=== PATIENT | male | born 1970 | race African-American/Black ===

== ENCOUNTER 2016-11-23 09:27 | Emergency (ER) | payer BC ==
[2016-11-23] MEDS ORDERED: Ketorolac 60 MG/2 ML SDV IM ONE (10:01)
--- NOTE | 2016-11-23 10:06 | EDM.PDOC ---
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 He then experienced a sharp stabbing to his lower back about L4-5 Pain has not resolved Review of Systems: As per history of present illness and below otherwise all systems reviewed and negative. Past medical history: As per history of present illness and as reviewed below otherwise noncontributory. Surgical history: As per history of present illness and as reviewed below otherwise noncontributory. Social history: No reported history of drug or alcohol abuse. Family history: As per history of present illness and as reviewed below otherwise noncontributory. Physical exam: Alert and oriented male answering questions appropriately Skin is warm and dry HEENT: Atraumatic, normocehpalic, pupils reactive, negative for conjunctival pallor or scleral icterus, mucous membranes moist, throat clear, neck supple, nontender, trachea midline. Lungs: Clear to auscultation, breath sounds equal bilaterally, chest non tender. Heart: S1S2, regular, negative for clicks, rubs, or JVD. Abdomen: Soft, nondistended, nontender. Negative for masses or hepatossplenmegaly. mild tenderness and slightly cord muscle noted to L4-L5 area. Negative for costovertebral tenderness. Pelvis: Stable nontender. Genitourinary: Deferred. Rectal: Deferred Extremities: Atraumatic, negative for cords or calf pain. Neurovascular unremarkable. Neuro: Awake, alert, oriented. Cranial nerves II through XII unremarkable. Cerebellum unremarkable. Motor and sensory unremarkable throughout. Exam nonfocal. Diagnostics: [] Therapeutics: [Toradol 60 mg IM] Impression: []Low back pain Plan: Off[]WORK today and tomorrow Diclofenac twice a day Follow-up with your primary care provider next week Definitive disposition and diagnosis as appropriate pending reevaluation and review of above. Patient Onset: Today, Sudden Duration: Hour(s):, Getting Worse Location: Reports: Back Quality: Reports: Ache, Stabbing Severity: Moderate Improves with: Reports: None Worsens with: Reports: None Context: Reports: Lifting Associated Symptoms: Reports: No Other Symptoms lower back Pain Score (Numeric/FACES): 10 - Related Data Allergies Allergy/AdvReac Type Severity Reaction Status Date / Time No Known Allergies Allergy Verified 11/23/16 09:36 Home Meds: Home Meds Diclofenac Sodium [IJD: Diclofenac Sodium] 75 mg PO .TWICE DAILY W MEALS #20 tab.ec 11/23/16 [Rx] Past Medical History - Past Health History Medical/Surgical History: Denies Medical/Surgical History - Past Surgical History Dermatological Surgical History: Reports: Skin Biopsy Social & Family History - Family History Family Medical History: Noncontributory - Tobacco Use Smoking Status *Q: Never Smoker Second Hand Smoke Exposure: No - Recreational Drug Use Recreational Drug Use: No ED ROS GENERAL - Review of Systems Review Of Systems: ROS reveals no pertinent complaints other than HPI. ED EXAM,LOWER BACK PAIN/INJURY - Physical Exam Exam: See Below (See dictation) Course - Vital Signs Last Recorded V/S: Last Vital Signs Temp 36.5 C 11/23/16 09:37 Pulse 75 11/23/16 10:17 Resp 18 11/23/16 10:17 BP 137/93 H 11/23/16 10:17 Pulse Ox 99 11/23/16 10:17 - Orders/Labs/Meds Meds: Medications Discontinued Medications Generic Name Dose Route Start Last Admin Trade Name Michael PRN Reason Stop Dose Admin Ketorolac Tromethamine 60 mg 11/23/16 10:01 11/23/16 10:13 Toradol IM 11/23/16 10:02 60 mg ONETIME ONE Administration Departure - Departure Time of Disposition: 10:06 Disposition: Home, Self-Care 01 Condition: Good Clinical Impression: Low back pain Qualifiers: Chronicity: acute Back pain laterality: unspecified Sciatica presence: without sciatica Qualified Code(s): M54.5 - Low back pain - Discharge Information Prescriptions: Diclofenac Sodium [IJD: Diclofenac Sodium] 75 mg PO .TWICE DAILY W MEALS #20 tab.ec Instructions: Muscle Strain, [id number], Back Injury Prevention, [id number] , Back Pain, Adult, [id number] Referrals: PCP,None [Primary Care Provider] - Forms: ED Department Discharge Additional Instructions: The following information is given to patients seen in the emergency department who are being discharged to home. This information is to outline your options for follow-up care. We provide all patients seen in our emergency department with a follow-up referral. The need for follow-up, as well as the timing and circumstances, are variable depending upon the specifics of your emergency department visit. If you don't have a primary care physician on staff, we will provide you with a referral. We always advise you to contact your personal physician following an emergency department visit to inform them of the circumstance of the visit and for follow-up with them and/or the need for any referrals to a consulting specialist. The emergency department will also refer you to a specialist when appropriate. This referral assures that you have the opportunity for followup care with a specialist. All of these measure are taken in an effort to provide you with optimal care, which includes your followup. Under all circumstances we always encourage you to contact your private physician who remains a resource for coordinating your care. When calling for followup care, please make the office aware that this follow-up is from your recent emergency room visit. If for any reason you are refused follow-up, please contact the [facility] emergency department at and asked to speak to the emergency department charge nurse. Prescription for diclofenac 75 mg twice a day electronically sent Ice on 20 minutes off 20 minutes for the first 24 hours then may alternate heat and ice depending on which is feeling better If your symptoms are not improving he will need to follow-up with your primary care provider possibly need a referral to physical therapy
[2016-11-23 10:17] VITALS: BP 137/93
== END 2016-11-23 10:30 | disposition home or self-care (01) ==
LOC: MW.ED 09:27
DX: M54.5 Low back pain (principal)
CPT/HCPCS: 96372; 99282; J1885; 99283

== ENCOUNTER 2017-05-19 09:00 | Emergency (ER) | payer BC ==
--- NOTE | 2017-05-19 09:14 | EDM.PDOC ---
ED HPI GENERAL MEDICAL PROBLEM - General Chief Complaint: Respiratory Problem Stated Complaint: PT SAY HE FEELS PAIN EVERYWHERE Time Seen by Provider: 05/19/17 09:14 Source of Information: Reports: Patient - History of Present Illness INITIAL COMMENTS - FREE TEXT/NARRATIVE: HISTORY AND PHYSICAL: History of present illness: []Patient has had cough and congestion for 7 days and general myalgias, no current fever nausea vomiting chills sweats no chest pain shortness breath headache dizziness palpitation about a urine symptoms Review of systems: As per history of present illness and below otherwise all systems reviewed and negative. Past medical history: As per history of present illness and as reviewed below otherwise noncontributory. Surgical history: As per history of present illness and as reviewed below otherwise noncontributory. Social history: No reported history of drug or alcohol abuse. Family history: As per history of present illness and as reviewed below otherwise noncontributory. Physical exam: HEENT: Atraumatic, normocephalic, pupils reactive, negative for conjunctival pallor or scleral icterus, mucous membranes moist, throat clear, neck supple, nontender, trachea midline. Lungs: Clear to auscultation, breath sounds equal bilaterally, chest nontender. Heart: S1S2, regular, negative for clicks, rubs, or JVD. Abdomen: Soft, nondistended, nontender. Negative for masses or hepatosplenomegaly. Negative for costovertebral tenderness. Pelvis: Stable nontender. Genitourinary: Deferred. Rectal: Deferred. Extremities: Atraumatic, negative for cords or calf pain. Neurovascular unremarkable. Neuro: Awake, alert, oriented. Cranial nerves II through XII unremarkable. Cerebellum unremarkable. Motor and sensory unremarkable throughout. Exam nonfocal. Diagnostics: [Influenza ] Therapeutics: []Tamiflu patient described this is an off label use he requests this Phenergan with codeine HFA 48 hours off work - Impression: [Influenza] Definitive disposition and diagnosis as appropriate pending reevaluation and review of above. bodyaches Pain Score (Numeric/FACES): 7 - Related Data Allergies Allergy/AdvReac Type Severity Reaction Status Date / Time No Known Allergies Allergy Verified 05/19/17 09:09 Home Meds: Home Meds . [No Known Home Meds] 05/19/17 [History] Past Medical History - Past Health History Medical/Surgical History: Denies Medical/Surgical History - Past Surgical History Dermatological Surgical History: Reports: Skin Biopsy Social & Family History - Family History Family Medical History: Noncontributory - Tobacco Use Smoking Status *Q: Never Smoker Second Hand Smoke Exposure: No - Caffeine Use Caffeine Use: Reports: Coffee - Recreational Drug Use Recreational Drug Use: No ED ROS GENERAL - Review of Systems Review Of Systems: ROS reveals no pertinent complaints other than HPI. ED EXAM, GENERAL - Physical Exam Exam: See Below Course - Vital Signs Last Recorded V/S: Last Vital Signs Temp 99.2 F 05/19/17 09:10 Pulse 129 H 05/19/17 09:10 Resp 18 05/19/17 09:10 BP 176/116 H 05/19/17 09:10 Pulse Ox 100 05/19/17 09:10 Departure - Departure Time of Disposition: 09:49 Disposition: Home, Self-Care 01 Condition: Good Clinical Impression: Influenza A - Discharge Information Referrals: PCP,None [Primary Care Provider] - Forms: ED Department Discharge Additional Instructions: The following information is given to patients seen in the emergency department who are being discharged to home. This information is to outline your options for follow-up care. We provide all patients seen in our emergency department with a follow-up referral. The need for follow-up, as well as the timing and circumstances, are variable depending upon the specifics of your emergency department visit. If you don't have a primary care physician on staff, we will provide you with a referral. We always advise you to contact your personal physician following an emergency department visit to inform them of the circumstance of the visit and for follow-up with them and/or the need for any referrals to a consulting specialist. The emergency department will also refer you to a specialist when appropriate. This referral assures that you have the opportunity for follow-up care with a specialist. All of these measure are taken in an effort to provide you with optimal care, which includes your follow-up. Under all circumstances we always encourage you to contact your private physician who remains a resource for coordinating your care. When calling for follow-up care, please make the office aware that this follow-up is from your recent emergency room visit. If for any reason you are refused follow-up, please contact the [facility] emergency department at and asked to speak to the emergency department charge nurse.
[2017-05-19 10:03] VITALS: BP 143/91
== END 2017-05-19 10:03 | disposition home or self-care (01) ==
LOC: MW.ED 09:00
DX: J10.1 Influenza due to other identified influenza virus with other respiratory manifestations (principal)
CPT/HCPCS: 87804; 99283

== ENCOUNTER 2017-08-21 08:30 | Emergency (ER) | payer BC ==
[2017-08-21] MEDS ORDERED: Sodium Chloride 0.9% 2.5 ML Syringe FLUSH PRN (08:41)
[2017-08-21] MEDS ORDERED: Ondansetron 4 MG/2 ML SDV IVPUSH ONE (08:41)
[2017-08-21] MEDS ORDERED: Sodium Chloride 0.9% 10 ML Syringe FLUSH PRN (08:41)
[2017-08-21] MEDS ORDERED: Morphine 4 MG/ML Syringe IVPUSH ONE (08:41)
--- NOTE | 2017-08-21 08:44 | EDM.PDOC ---
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 He took Advil with no improvement he denies shortness of breath nausea vomiting palpitations he denies known history of hypertension. Review of systems: As per history of present illness and below otherwise all systems reviewed and negative. Past medical history: As per history of present illness and as reviewed below otherwise noncontributory. Surgical history: As per history of present illness and as reviewed below otherwise noncontributory. Social history: No reported history of drug or alcohol abuse. Family history: As per history of present illness and as reviewed below otherwise noncontributory. Physical exam: HEENT: Atraumatic, normocephalic, pupils reactive, negative for conjunctival pallor or scleral icterus, mucous membranes moist, throat clear, neck supple, nontender, trachea midline. Lungs: Clear to auscultation, breath sounds equal bilaterally, chest nontender. Heart: S1S2, regular, negative for clicks, rubs, or JVD. Abdomen: Soft, nondistended, nontender. Negative for masses or hepatosplenomegaly. Negative for costovertebral tenderness. Pelvis: Stable nontender. Genitourinary: Deferred. Rectal: Deferred. Extremities: Atraumatic, negative for cords or calf pain. Neurovascular unremarkable. Neuro: Awake, alert, oriented. Cranial nerves II through XII unremarkable. Cerebellum unremarkable. Motor and sensory unremarkable throughout. Exam nonfocal. Diagnostics: CBC CMP PT/INR troponin CT chest Therapeutics: Saline at 125 mL an hour morphine sulfate 4 mg IV Zofran 4 mg IV Impression: #1 mid scapular back pain #2 hypertension Definitive disposition and diagnosis as appropriate pending reevaluation and review of above. pain between shoulders Pain Score (Numeric/FACES): 8 - Related Data Allergies Allergy/AdvReac Type Severity Reaction Status Date / Time No Known Allergies Allergy Verified 08/21/17 08:41 Home Meds: Home Meds . [No Known Home Meds] 05/19/17 [History] Past Medical History - Past Health History Medical/Surgical History: Denies Medical/Surgical History - Past Surgical History Dermatological Surgical History: Reports: Skin Biopsy Social & Family History - Family History Family Medical History: Noncontributory - Tobacco Use Smoking Status *Q: Never Smoker Second Hand Smoke Exposure: No - Caffeine Use Caffeine Use: Reports: Coffee - Recreational Drug Use Recreational Drug Use: No ED ROS GENERAL - Review of Systems Review Of Systems: ROS reveals no pertinent complaints other than HPI. ED EXAM, GENERAL - Physical Exam Exam: See Below (dictation) Course - Vital Signs Text/Narrative:: CT findings were reviewed with radiology and cardiothoracic surgery at [facility] was in agreement that there is no dissection and that surveillance and follow-up as outpatient is adequate. Patient will be prescribed hydrochlorothiazide he'll be given follow-up with his private medical doctor and also local clinic he will also be given cardiothoracic surgery referral for follow-up in coordination with primary care. Last Recorded V/S: Last Vital Signs Temp 35.3 C 08/21/17 08:37 Pulse 70 08/21/17 12:06 Resp 18 08/21/17 12:06 BP 166/108 H 08/21/17 12:06 Pulse Ox 100 08/21/17 12:06 - Orders/Labs/Meds Orders: Active Orders 24 hr Category Date Time Status Cardiac Monitoring [RC] . DIRECTED Care 08/21/17 08:40 Active EKG Documentation Completion [RC] STAT Care 08/21/17 08:40 Active Pulse Oximetry [RC] ASDIRECTED Care 08/21/17 08:40 Active Chest w Cont [CT] Stat Exams 08/21/17 08:41 Taken Sodium Chloride 0.9% [Normal Saline] 1,000 ml Med 08/21/17 08:45 Active IV STAT Sodium Chloride 0.9% [Saline Flush] Med 08/21/17 08:41 Active 10 ml FLUSH ASDIRECTED PRN Sodium Chloride 0.9% [Saline Flush] Med 08/21/17 08:41 Active 2.5 ml FLUSH ASDIRECTED PRN Saline Lock Insert [OM.PC] Stat Oth 08/21/17 08:40 Ordered Medication Orders Sodium Chloride (Normal Saline) 1,000 mls @ 125 mls/hr IV STAT CHINO Last Admin: 04/21/18 08:50 Dose: 125 mls/hr Sodium Chloride (Saline Flush) 10 ml FLUSH ASDIRECTED PRN PRN Reason: Keep Vein Open Sodium Chloride (Saline Flush) 2.5 ml FLUSH ASDIRECTED PRN PRN Reason: Keep Vein Open Labs: Laboratory Tests 08/21/17 08/21/17 08/21/17 Range/Units 08:45 08:45 08:45 WBC 6.85 (4.0-11.0) K/uL RBC 4.68 (4.50-5.90) M/uL Hgb 14.7 (13.0-17.0) g/dL Hct 42.3 (38.0-50.0) % MCV 90.4 (80.0-98.0) fL MCH 31.4 (27.0-32.0) pg MCHC 34.8 (31.0-37.0) g/dL RDW Std Deviation 44.1 (28.0-62.0) fl RDW Coeff of Margy 13 (11.0-15.0) % Plt Count 186 (150-400) K/uL MPV 10.10 (7.40-12.00) fL Neut % (Auto) 40.8 L (48.0-80.0) % Lymph % (Auto) 35.6 (16.0-40.0) % Summers % (Auto) 12.7 (0.0-15.0) % Eos % (Auto) 10.8 H (0.0-7.0) % Baso % (Auto) 0.1 (0.0-1.5) % Neut # (Auto) 2.8 (1.4-5.7) K/uL Lymph # (Auto) 2.4 (0.6-2.4) K/uL Summers # (Auto) 0.9 H (0.0-0.8) K/uL Eos # (Auto) 0.7 (0.0-0.7) K/uL Baso # (Auto) 0.0 (0.0-0.1) K/uL Nucleated RBC % 0.0 /100WBC Nucleated RBCs # 0 K/uL INR 1.04 Sodium 138 (136-148) mmol/L Potassium 3.5 (3.5-5.1) mmol/L Chloride 104 (98-107) mmol/L Carbon Dioxide 28.4 (21.0-32.0) mmol/L BUN 20 H (7.0-18.0) mg/dL Creatinine 1.1 (0.8-1.3) mg/dL Est Cr Clr Drug Dosing 87.47 mL/min Estimated GFR (MDRD) > 60.0 ml/min Glucose 103 (74-106) mg/dL Calcium 9.1 (8.5-10.1) mg/dL Total Bilirubin 0.5 (0.2-1.0) mg/dL AST 18 (15-37) IU/L ALT 26 (14-63) IU/L Alkaline Phosphatase 56 (46-116) U/L Troponin I < 0.050 (0.000-0.056) ng/mL Total Protein 8.2 (6.4-8.2) g/dL Albumin 4.1 (3.4-5.0) g/dL Globulin 4.1 H (2.0-3.5) g/dL Albumin/Globulin Ratio 1.0 L (1.3-2.8) Meds: Medications Generic Name Dose Route Start Last Admin Trade Name Freq PRN Reason Stop Dose Admin Sodium Chloride 1,000 mls @ 125 mls/hr 08/21/17 08:45 08/21/17 08:50 Normal Saline IV 125 mls/hr STAT CHINO Administration Sodium Chloride 10 ml 08/21/17 08:41 Saline Flush FLUSH ASDIRECTED PRN Keep Vein Open Sodium Chloride 2.5 ml 08/21/17 08:41 Saline Flush FLUSH ASDIRECTED PRN Keep Vein Open Discontinued Medications Generic Name Dose Route Start Last Admin Trade Name Freq PRN Reason Stop Dose Admin Iopamidol 100 ml 08/21/17 09:32 08/21/17 09:32 Isovue-370 (76%) IVPUSH 08/21/17 09:33 75 ml ONETIME STA Administration Morphine Sulfate 4 mg 08/21/17 08:41 08/21/17 08:50 Morphine IVPUSH 08/21/17 08:42 4 mg ONETIME ONE Administration Ondansetron HCl 4 mg 08/21/17 08:41 08/21/17 08:50 Zofran IVPUSH 08/21/17 08:42 4 mg ONETIME ONE Administration Departure - Departure Time of Disposition: 12:08 Disposition: Home, Self-Care 01 Condition: Good Clinical Impression: Thoracic aortic aneurysm, Hypertension - Discharge Information Referrals: PCP,None [Primary Care Provider] - Forms: ED Department Discharge Additional Instructions: The following information is given to patients seen in the emergency department who are being discharged to home. This information is to outline your options for follow-up care. We provide all patients seen in our emergency department with a follow-up referral. The need for follow-up, as well as the timing and circumstances, are variable depending upon the specifics of your emergency department visit. If you don't have a primary care physician on staff, we will provide you with a referral. We always advise you to contact your personal physician following an emergency department visit to inform them of the circumstance of the visit and for follow-up with them and/or the need for any referrals to a consulting specialist. The emergency department will also refer you to a specialist when appropriate. This referral assures that you have the opportunity for followup care with a specialist. All of these measure are taken in an effort to provide you with optimal care, which includes your followup. Under all circumstances we always encourage you to contact your private physician who remains a resource for coordinating your care. When calling for followup care, please make the office aware that this follow-up is from your recent emergency room visit. If for any reason you are refused follow-up, please contact the [facility] emergency department at and asked to speak to the emergency department charge nurse. [facility] [address] [place] [id number] Hydrochlorothiazide as prescribed follow-up primary medical doctor in our clinic above CV surgery referral as discussed and return as needed as discussed - My Orders Last 24 Hours: My Active Orders 08/21/17 08:40 Cardiac Monitoring [RC] . DIRECTED EKG Documentation Completion [RC] STAT Pulse Oximetry [RC] ASDIRECTED Saline Lock Insert [OM.PC] Stat 08/21/17 08:41 Chest w Cont [CT] Stat Sodium Chloride 0.9% [Saline Flush] 10 ml FLUSH ASDIRECTED PRN Sodium Chloride 0.9% [Saline Flush] 2.5 ml FLUSH ASDIRECTED PRN 08/21/17 08:45 Sodium Chloride 0.9% [Normal Saline] 1,000 ml IV STAT - Assessment/Plan Last 24 Hours: My Active Orders 08/21/17 08:40 Cardiac Monitoring [RC] . DIRECTED EKG Documentation Completion [RC] STAT Pulse Oximetry [RC] ASDIRECTED Saline Lock Insert [OM.PC] Stat 08/21/17 08:41 Chest w Cont [CT] Stat Sodium Chloride 0.9% [Saline Flush] 10 ml FLUSH ASDIRECTED PRN Sodium Chloride 0.9% [Saline Flush] 2.5 ml FLUSH ASDIRECTED PRN 08/21/17 08:45 Sodium Chloride 0.9% [Normal Saline] 1,000 ml IV STAT
[2017-08-21] MEDS ORDERED: Sodium Chloride 0.9% 1,000 ML IV SCH (08:45)
[2017-08-21 09:17] LABS: CHLORIDE,CL 104 mmol/L (98-107); SODIUM,NA 138 mmol/L (136-148)
[2017-08-21] MEDS ORDERED: Iopamidol 755 Mg/ML 100 ML Bottle IVPUSH STA (09:32)
[2017-08-21 14:56] VITALS: BP 155/115
--- NOTE | 2017-08-23 10:26 | CT ---
EXAM DATE: 08/21/17 PATIENT'S AGE: 47 Patient: DENA ACHARYA MWAMBA Facility: [place], [place] Site . Site : [id number] Study: CT Chest [id number]/[id number] 9:35:15 AM Ordering Physician: Chante Herrera Final Report: Indication: Mid and upper back pain Technique contrast-enhanced chest CT scan with coronal side reformatted images obtained . No comparison studies are available. Finding : Mild thoracic aortic aneurysm measuring 4.3 cm no central pulmonary emboli seen heart size normal no pericardial effusion. No mediastinal hilar adenopathy. Lungs appear clear no pneumothorax. Minimal bibasilar atelectasis. Central airways are clear. No acute fracture seen or suspicious bony lesions. Impression : 1. No acute findings in the chest. 2. Mild thoracic aortic aneurysm measuring 4.3 cm. Please note that all CT scans at this facility use dose modulation, iterative reconstruction, and/or weight-based dosing when appropriate to reduce radiation dose to as low as reasonably achievable. Dictated by Megan Keller MD @ Aug 21 2017 9:49AM (Electronic Signature) Report Signed by Proxy. TANESHA
== END 2017-08-21 12:29 | disposition home or self-care (01) ==
LOC: MW.ED 08:30
DX: I71.2 Thoracic aortic aneurysm, without rupture (principal); I10 Essential (primary) hypertension
CPT/HCPCS: 36415; 71260; 80053; 84484; 85025; 85610; 93005; 96361; 96374; 96375; 99284; J2270; J2405; J7040; Q9967